=== PATIENT | male | born 1965 | race Caucasian/White ===

== ENCOUNTER → 2018-10-12 07:24 | Outpatient (CLI) | payer OTHER, SELFPAY ==
--- NOTE | 2018-10-12 07:30 | MRI_ITS ---
STUDY: MRI LUMBAR SPINE WITHOUT CONTRAST REASON FOR EXAM: Male, 53 years old. disc displacement, low back pain, hip pain, some leg pain TECHNIQUE: Standardized fat and water weighted pulse sequences were obtained in the sagittal and axial planes. COMPARISON: None FINDINGS: T12-L1: Normal endplates. Normal disc height, hydration and morphology. Normal bilateral facet joints. Normal central canal and bilateral lateral recesses. Normal bilateral intervertebral neural foramina. Normal lumbar lordosis. There is no substantial scoliosis. Normal conus medullaris that terminates at the L1 level. L1-2: Bulging annulus and central annular fissure with bilateral facet hypertrophy. Mild central canal and left foraminal stenoses. L2-3: Bulging annulus with mild central canal and right foraminal stenoses. L3-4: Bulging annulus and broad left paracentral disc protrusion with bilateral facet hypertrophy. Severe central canal stenosis with deflection of transiting nerve roots. Moderate to severe right and mild left foraminal stenoses. L4-5: Bulging annulus with mild central canal and bilateral foraminal stenoses. L5-S1: Bulging annulus and central annular fissure with mild left foraminal stenosis. Normal visualized sacral ala. Normal visualized paraspinous soft tissue structures. MRI/Spine Lumbar (Routine) IMPRESSION: Multilevel degenerative disease as described. Severe central canal stenosis at L3-4 with deflection of transiting nerve roots. Moderate to severe right foraminal stenosis at the L3-4 level. Electronically Signed: Zaki Bradford MD at 9:10 EST Tel , Service support ,
== END ==
PROVIDERS: Family Provider Internal Medicine; PCP Internal Medicine; Referring Provider Chiropractor; Visit Provider Chiropractor
DX: M51.26 Other intervertebral disc displacement, lumbar region (principal)
CPT/HCPCS: 72148

== ENCOUNTER → 2020-12-18 09:40 | Outpatient (CLI) | payer OTHER, SELFPAY | PROVIDERS: PCP Internal Medicine; Referring Provider Dermatology; Visit Provider Dermatology | DX: T81.40XA Infection following a procedure, unspecified, initial encounter (principal); L30.8 Other specified dermatitis; Z08 Encounter for follow-up examination after completed treatment for malignant neoplasm; Z85.828 Personal history of other malignant neoplasm of skin; D22.5 Melanocytic nevi of trunk; L82.1 Other seborrheic keratosis; Z71.89 Other specified counseling | CPT/HCPCS: 87070; 87077; 87186; 87205 ==

== ENCOUNTER → 2022-09-27 | Outpatient (CLI) | payer OTHER, SELFPAY ==
--- NOTE | 2022-09-27 07:00 | MRI_ITS ---
STUDY: MRI LUMBAR SPINE WITHOUT CONTRAST REASON FOR EXAM: Male, 57 years old. Spinal stenosis with neurogenic claudication. TECHNIQUE: Standardized fat and water weighted pulse sequences were obtained in the sagittal and axial planes. COMPARISON: MRI lumbar spine without contrast 07/21/2019. FINDINGS: T11-T12: (Sagittal only). Normal T11 inferior endplate. Mild anterior wedging of T12 superior endplate is unchanged. Pronounced disc space height narrowing. Tiny ventral extradural defect is posterior bulging annulus and unchanged. Normal central canal. Mild stenosis of the bilateral intervertebral neural foramina. This level is unchanged. T12-L1: (Sagittal only). Schmorl''s nodes in the central vertebral endplates are unchanged. Mild disc space height narrowing. Minimal ventral extradural defect due to small posterior bulging annulus. Normal central canal and left intervertebral neural foramen. Mild stenosis of the right intervertebral neural foramen. This level is unchanged. Normal lumbar lordosis. There is no substantial scoliosis. Normal conus medullaris that terminates at the mid L1 vertebral body level. L1-2: Normal endplates. Mild disc space height narrowing. Mild bilateral degenerative facet arthropathy. Mild dorsal epidural lipomatosis. Normal central canal and bilateral lateral recesses. Normal bilateral intervertebral neural foramina. This level is unchanged. L2-3: Normal L3 superior endplate. Small Schmorl''s node in the right posterior L2 inferior endplate. Moderate disc space height narrowing, previously mild disc space height narrowing. Mild bilateral degenerative facet arthropathy. Mild dorsal epidural lipomatosis. Mild central canal stenosis with an AP canal diameter 9.0 mm. Normal bilateral lateral recesses. Normal bilateral intervertebral neural foramina. L3-4: Normal endplates. Moderate disc space height narrowing. Mild increase in mild degenerative anterolisthesis of L3 on L4. Moderate asymmetric degenerative facet arthropathy. Minimal dorsal epidural lipomatosis. Pronounced central canal stenosis with an AP canal diameter of 3.4 mm, previously 5 mm. Pronounced stenosis of the bilateral lateral recesses, previously limited to the left lateral recess. Mild stenosis of the bilateral intervertebral neural foramina without significant change. L4-5: Normal endplates. Pronounced disc space height narrowing, previously moderately pronounced. Mild bilateral degenerative facet arthropathy. Mild central canal stenosis with an AP canal diameter of 9.5 mm is unchanged. Normal bilateral lateral recesses. Normal bilateral intervertebral neural foramina. L5-S1: Normal endplates. Moderate pronounced disc space height narrowing is unchanged. The small T2 hyperintensity underneath the posterior annulus has resolved. Small left posterior paramedian but caudal disc protrusion (series 6, image 2). No associated displacement of the left S1 nerve root sleeve. Normal central canal and bilateral lateral recesses. No significant facet arthropathy. Mild stenosis of the left intervertebral neural foramen. Normal right intervertebral neural foramen. Normal visualized sacral ala. Normal visualized paraspinous soft tissue structures. MRI/Spine Lumbar (Routine) IMPRESSION: 1. Pronounced central canal stenosis at L3-L4 disc space level with an AP canal diameter of 3.4 mm, previously 5 mm. Pronounced stenosis of the bilateral lateral recesses, previously limited to the left lateral recess. There are secondary to developmentally short pedicles, moderate bilateral degenerative facet arthropathy and mild increase in mild degenerative anterolisthesis of L3 on L4. 2. Small left L5-S1 posterior paramedian both caudal disc protrusion (series 6, image 2). This is of questionable clinical significance since there is no associated displacement of the left S1 nerve root sleeve and no associated left lateral recess stenosis. 3. No other significant interval change when compared to 10/12/2018. Electronically Signed: Juan Elias MD at 11:14 EST ,
== END | disposition home or self-care (01) ==
PROVIDERS: PCP Internal Medicine; Referring Provider Chiropractor; Visit Provider Chiropractor
DX: M48.062 Spinal stenosis, lumbar region with neurogenic claudication (principal); M51.27 Other intervertebral disc displacement, lumbosacral region; M47.816 Spondylosis without myelopathy or radiculopathy, lumbar region; M43.16 Spondylolisthesis, lumbar region; M51.36 Other intervertebral disc degeneration, lumbar region
CPT/HCPCS: 72148